=== PATIENT | female | born 1990 ===

== ENCOUNTER 2020-08-05 13:22 | Inpatient (IN) | payer OTHER ==
[~2020-08-05] VITALS: Ht 170.2 cm; Wt 95.3 kg
[2020-08-18] MEDS ORDERED: PRENATAL TABLE1 EAC1 PO (08:27)
== END 2020-08-20 11:02 | disposition home or self-care (01) | DRG 807 ==
LOC: OB/GYN → LDR 08-18 06:36 → OB/GYN 08-18 06:36
PROVIDERS: ADMIT Obstetrics & Gynecology; ATTEND Obstetrics & Gynecology
PROC: 10E0XZZ Delivery of Products of Conception, External Approach (ICD-10-PCS; principal; 2020-08-18)
PROC: 4A1HXFZ Monitoring of Products of Conception, Cardiac Rhythm, External Approach (ICD-10-PCS; 2020-08-18)
DX: O80 Encounter for full-term uncomplicated delivery (principal); Z37.0 Single live birth; Z3A.39 39 weeks gestation of pregnancy; Z20.828 Contact with and (suspected) exposure to other viral communicable diseases